=== PATIENT | male | born 2000 | race Asian ===

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

== ENCOUNTER 2021-03-27 00:46 | Emergency (ER) | payer OTHER ==
[~2021-03-27] VITALS: Ht 175.3 cm; Wt 59.1 kg
[2021-03-27 01:00] VITALS: BP 118/74
[2021-03-27] MEDS ORDERED: DiphenhydrAMINE HCL 50 MG/ML VIAL IM ONE (01:15)
[2021-03-27] MEDS ORDERED: PredniSONE 20 MG TABLET PO ONE (01:15)
== END 2021-03-27 01:29 | disposition home or self-care (01) ==
LOC: EMS 00:50
DX: L50.9 Urticaria, unspecified (principal)
CPT/HCPCS: 96372; 99283; J1200; J7512

== ENCOUNTER 2022-04-14 02:26 | Emergency (ER) | payer OTHER ==
[~2022-04-14] VITALS: Ht 175.3 cm; Wt 70.5 kg
[2022-04-14] MEDS ORDERED: BACLOFEN 10 MG TABLET PO ONE (04:00)
[2022-04-14] MEDS ORDERED: KETOROLAC TROMETHAMINE 60 MG/2 ML VIAL IM ONE (04:00)
[2022-04-14] MEDS ORDERED: ACETAMINOPHEN/CODEINE 300-30 MG TABLET PO ONE (04:00)
[2022-04-14] MEDS ORDERED: ACET-2080 PO (05:24)
[2022-04-14] MEDS ORDERED: IBUP-1554 PO (05:24)
[2022-04-14] MEDS ORDERED: BACL10TA PO (05:24)
[2022-04-14 05:37] VITALS: BP 132/88
== END 2022-04-14 05:43 | disposition home or self-care (01) ==
LOC: EMS 02:27
DX: S13.4XXA Sprain of ligaments of cervical spine, initial encounter (principal); X58.XXXA Exposure to other specified factors, initial encounter; Y93.67 Activity, basketball; Y92.89 Other specified places as the place of occurrence of the external cause; Y99.8 Other external cause status
CPT/HCPCS: 99284; 72040; 72070; 96372; J1885